=== PATIENT | male | born 1975 | race Caucasian/White ===

== ENCOUNTER 2021-03-23 09:16 | Emergency (ER) | payer MEDICARE, OTHER ==
[~2021-03-23 09:16] MED LIST: BENTYL 20MG TAB20 MG PO; CARAFATE1 GM/10 ML PO; PHENERGAN 12.12.5 MG PR; PROTONIX40 MG PO; ZOFRAN ODT 4 MG4 MG PO
[2021-03-23 10:35] LABS: HEMOGLOBIN 11.5 gm/dl (14.0-17.5); RED BLOOD COUNT 4.39 M/UL (4.20-5.50); WHITE BLOOD COUNT 9.2 K/UL (4.5-11.0)
[2021-03-23 10:53] LABS: BUN/CREATININE RATIO 19 (0-10)
[2021-03-23] MEDS ORDERED: TORADOL 10 MG T10 MG PO (11:50)
[2021-03-23] MEDS ORDERED: ZOFRAN4 MG PO (11:50)
[2021-03-23] MEDS ORDERED: FLOMAX0.4 MG PO (11:50)
== END 2021-03-23 12:16 | disposition home or self-care (01) ==
LOC: ER1 09:16
PROVIDERS: Physician Assistant
DX: N13.2 Hydronephrosis with renal and ureteral calculous obstruction (principal); M54.42 Lumbago with sciatica, left side; E11.9 Type 2 diabetes mellitus without complications; I25.10 Atherosclerotic heart disease of native coronary artery without angina pectoris; Z87.442 Personal history of urinary calculi; Z88.0 Allergy status to penicillin
CPT/HCPCS: 80053; 81001; 83690; 85025; 96372; 99284; J1100; J1885

== ENCOUNTER 2021-07-28 17:46 | Emergency (ER) | payer MEDICARE ==
[~2021-07-28 17:46] MED LIST changes: +FLOMAX0.4 MG PO; +TORADOL 10 MG T10 MG PO; +ZOFRAN4 MG PO
[2021-07-29] MEDS ORDERED: LODINE CAP 300300 MG PO (05:22)
[2021-07-29] MEDS ORDERED: CEPHALEXIN500 MG PO (05:22)
[2021-07-29] MEDS ORDERED: ZOFRAN ODT 4 MG4 MG PO (05:22)
== END 2021-07-28 18:37 | disposition left against medical advice (07) ==
LOC: ER1 17:46
DX: Z53.21 Procedure and treatment not carried out due to patient leaving prior to being seen by health care provider (principal)

== ENCOUNTER 2021-07-29 02:05 | Emergency (ER) | payer MEDICARE ==
[2021-07-29 02:39] LABS: HEMOGLOBIN 11.5 gm/dl (14.0-17.5); RED BLOOD COUNT 4.22 M/UL (4.20-5.50); WHITE BLOOD COUNT 9.7 K/UL (4.5-11.0)
[2021-07-29 02:57] LABS: BUN/CREATININE RATIO 15 (0-10)
[2021-07-29] MEDS ORDERED: ZOFRAN ODT 4 MG4 MG PO (05:22)
[2021-07-29] MEDS ORDERED: CEPHALEXIN500 MG PO (05:22)
[2021-07-29] MEDS ORDERED: LODINE CAP 300300 MG PO (05:22)
== END 2021-07-29 05:48 | disposition home or self-care (01) ==
LOC: ER1 02:05
PROVIDERS: Physician Assistant
DX: N30.91 Cystitis, unspecified with hematuria (principal); E78.5 Hyperlipidemia, unspecified; E11.9 Type 2 diabetes mellitus without complications; I25.10 Atherosclerotic heart disease of native coronary artery without angina pectoris
CPT/HCPCS: 80053; 81001; 83690; 85025; 87077; 87086; 87186; 96374; 96375; 99284; J0696; J1885; Q9967

== ENCOUNTER 2022-06-18 20:45 | Emergency (ER) | payer MEDICARE ==
[~2022-06-18 20:45] MED LIST changes: +CEPHALEXIN500 MG PO; +LODINE CAP 300300 MG PO
== END 2022-06-18 23:30 | disposition left against medical advice (07) ==
LOC: ER1 20:45
DX: U07.1 COVID-19 (principal); Z88.0 Allergy status to penicillin
CPT/HCPCS: 0240U; 99281